=== PATIENT | male | born 1975 | race Hispanic/Latino ===

== ENCOUNTER 2025-06-19 07:35 | Emergency (ER) | payer BC, OTHER ==
--- OUTSIDE RECORDS SUMMARY | 2025-06-19 07:39 | XMS REPORT | Continuity of Care Document ---
Author Name Unknown Address [address] [place] [address] [facility] [place] Address 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 Name Role Phone Pcp, Patient Does Not Have A Primary Care Physic pako BLANKA HAQ Attending Clinician Unavailable [id number] Attending Clinician Unavailable [id number] Attending Clinician Unavailable Dario Darden Attending Clinician Unavailabl e MALLORY NORTH Attending Clinician Unavailable MALLORY NORTH Attending Clinician Unavailable Lab, Ang - Db Attending Clinician Unavailable DARIO WHEELER Attending Clinician Unavailable Doctor Unassigned, [place] Attending Clinician U eduardoailable ZACH BRUCE Attending Clinician Unavailable Zach Bruce MD Attending Clinician Payers Payer Name Policy Type Policy Number Effective Date Expirati on Date Source BCBS 2 [id number] 2023 00:00:00 TML GBRP CLAIMS [id number] 2020 00:00:00 Problems Condition Name Condition Details Condition Category Status Onset Date Resolution Date Last Treatment Date Treating Clinician Comments Source Immunodefi ciency due to poorly controlled type 2 diabetes (multi HCC) Immunodefi ciency due to poorly controlled type 2 diabetes (multi HCC) Disease Active 04-08 00:00: 00 Mel Barreto - Mikea beck Well adult exam Well adult exam Disease Active 04-08 00:00: 00 Mel Jama Externa beck Type 2 diabetes mellitus with hyperglyce quinten, without long-term current use of insulin (multi HCC) Type 2 diabetes mellitus with hyperglyce quinten, without long-term current use of insulin (multi HCC) Disease Active 1- 00:00: 00 Mel Mckeona beck DM type 2 with diabetic mixed hyperlipid emia (multi HCC) DM type 2 with diabetic mixed hyperlipid emia (multi HCC) Disease Active 05-16 00:00: 00 Mel Mckeona beck Diabetes (multi HCC) Diabetes (multi HCC) Disease Active 05-16 00:00: 00 Mel Mckeona beck Overweight (BMI 25.0-29.9) Overweight (BMI 25.0-29.9) Disease Active 05-16 00:00: 00 Mel Mckeona beck No known active problems No known active problems Disease [facility] Allergies, Adverse Reactions, Alerts Allergy Name Allergy Type Status Severity Reaction(s) Onset Date Inactive Date Treating Clinician Comments Source NO KNOWN ALLERGIE S Drug Class Active [facility] Social History Social Habit Start Date Stop Date Quantity Comments Source Gender identity Suze Barreto - External Sexual orientation K cosme Barreto - External History of Occupation Mel Barreto - External Alcoholic beverage intake 2025-04-08 00:00:00 2025-04-08 00:00:00 Current drinker of alcohol (finding) Mel Barreto - External Alcohol intake 2023-12-25 00:00:00 2023-12-25 00:00:00 Current drinker of alcohol (finding) Mel Barreto - External History of Social function 2023-06-11 00:00:00 2023-06-11 00:00:00 Mel Barreto - External Education 2023-05-16 00:00:00 2023-05-16 00:00:00 13 Mel Barreto - External Alcohol Comment 2023-05-16 00:00:00 2023-05-16 00:00:00 rarely Mel Barreto - External Tobacco use and exposure 2023-05-15 00:00:00 2023-05-15 00:00:00 Smokeless tobacco non-user Mel Barreto - External Sex 2023-04-09 14:21:39 2023-04-09 14:21:39 Male (finding) Mel Barreto - External Exposure to SARS-CoV-2 (event) 2022-07-25 00:00:00 2022-08-04 12:40:00 Not sure [facility] Sex assigned at 1975 00:00:00 1975 00:00:00 Mel Barreto - External Smoking Status Start Date Stop Date Source Tobacco smoking consumption unknown [facility] Never smoked tobacco Mel Barreto - External Medications Ordered Medication Name Filled Medication Name Start Date Stop Date Current Medication? Ordering Clinician Indication Dosage Frequency Signature (SIG) Comments Components Source Tirzepatide (Mounjaro) 7.5 MG/0.5ML subcutaneou s Solution Auto-inject or 16 00:00: 00 Yes [id number] 9109 7.5mg Q1W Inject 7.5 mg into the skin once a week. Mel solares Metformin HCl 500 MG oral Tablet 02-25 00:00: 00 Yes [id number] 3 500mg Take 1 tablet (500 mg total) by mouth in the morning and 1 tablet (500 mg total) in the evening. Take with meals. Mel solares Tirzepatide (Mounjaro) 5 MG/0.5ML subcutaneou s Solution Auto-inject or 02-25 00:00: 00 04-08 00:00 :00 No [id number] 9109 1{pen} Q1W Inject 1 Pen into the skin once a week. Mel solares Tirzepatide 5 MG/0.5ML subcutaneou s Solution Auto-inject or 4-16 00:00: 00 Yes [id number] 9109 5mg Q1W Inject 5 mg into the skin once a week. Mel solares Glucose Blood in vitro Strip 15 00:00: 00 Yes [id number] 9109 1{each} QD 1 each by other route daily. Mel solares Tirzepatide 2.5 MG/0.5ML subcutaneou s Solution Auto-inject or 15 00:00: 00 01-07 00:00 :00 No [id number] 9109 2.5mg Q1W Inject 2.5 mg into the skin once a week. Mel solares Atorvastati n Calcium (Lipitor) 10 MG oral Tablet 2023-09 0-04 00:00: 00 Yes [id number] 3 10mg QD Take 1 tablet (10 mg total) by mouth nightly. Mel solares Metformin HCl 500 MG oral Tablet 2023-09 0-02 00:00: 00 Yes [id number] 3 500mg Take 1 tablet (500 mg total) by mouth in the morning and 1 tablet (500 mg total) in the evening. Take with meals. Mel solares OZEMPIC (1 mg/dose) 4 mg/3 mL SQ Solution Pen-Injecto r 8-21 00:00: 00 10-08 00:00 :00 No [id number] 3 1mg Q1W Inject 1 mg into the skin once a week. Mel solares Metformin HCl 500 MG oral Tablet 18 00:00: 00 Yes [id number] 3 500mg QD Take 1 tablet (500 mg total) by mouth daily (with breakfast) . eMl solares OZEMPIC (1 mg/dose) 4 mg/3 mL SQ Solution Pen-Injecto r 7-11 00:00: 00 05-14 00:00 :00 No [id number] 3 1mg Q1W Inject 1 mg into the skin once a week. Mel solares Metformin HCl 500 MG oral Tablet 7-03 00:00: 00 Yes [id number] 3 500mg QD Take 1 tablet (500 mg total) by mouth daily (with breakfast) . Mel Seybold - Externa l OZEMPIC (1 mg/dose) 4 mg/3 mL SQ Solution Pen-Injecto r 2024-0 7-03 00:00: 00 03-26 00:00 :00 No [id number] 3 1mg Q1W Inject 1 mg into the skin once a week. Mel Seybold - Externa l OZEMPIC (0.25 or 0.5 mg/dose) 2 mg/3 mL SQ Solution Pen-Injecto r 2024-0 6-05 00:00: 00 03-26 00:00 :00 No [id number] .5mg Q1W Inject 0.5 mg into the skin once a week. Mel Seybold - Externa l OZEMPIC (1 mg/dose) 4 mg/3 mL SQ Solution Pen-Injecto r 40 2-12 00:00: 00 12-24 00:00 :00 No 1mg Inject 1 mg into the skin once a week. Mel Seybold - Externa l OZEMPIC (0.25 or 0.5 mg/dose) 2 mg/3 mL SQ Solution Pen-Injecto r 0 1-22 00:00: 00 Yes [id number] .5mg Inject 0.5 mg into the skin once a week. Mel Seybold - Externa l OZEMPIC (1 mg/dose) 4 mg/3 mL SQ Solution Pen-Injecto r 0 9-27 00:00: 00 Yes [id number] 1mg Inject 1 mg into the skin once a week. Mel Barreto - Externa l Metformin HCl ER 500 MG oral TABLET SR 24 HR 0 9-27 00:00: 00 Yes [id number] 500mg Take 1 tablet (500 mg total) by mouth in the morning and 1 tablet (500 mg total) in the evening. Take with meals. Mel Seybold - Externa l OZEMPIC (0.25 or 0.5 mg/dose) 2 mg/3 mL SQ Solution Pen-Injecto r 20230 8-23 00:00: 00 Yes [id number] .5mg Inject 0.5 mg into the skin once a week. Mel Booneold - Externa l Metformin HCl ER 500 MG oral TABLET SR 24 HR 0 8-23 00:00: 00 Yes [id number] 500mg Take 1 tablet (500 mg total) by mouth daily. Mel solares OZEMPIC (0.25 or 0.5 mg/dose) 2 mg/3 mL SQ Solution Pen-Injecto r 04-19 00:00: 00 05-16 00:00 :00 No INJECT 0.5MG SUBCUTANEO USLY ONCE A WEEK Mel solares blood sugar diagnostic (ACCU-CHEK GUIDE TEST STRIPS) strip 2021-09 00:00: 00 Yes [id number] Use daily. Dx E11.65 [facility] semaglutide (OZEMPIC) 0.25 mg or 0.5 mg(2 mg/1.5 mL) PnIj 2021-09 00:00: 00 Yes [id number] .5mg inject 0.5 mg under the skin weekly. [facility] Metformin HCl ER 500 MG oral TABLET SR 24 HR 2021-09 00:00: 00 05-16 00:00 :00 No 500mg Take 1 tablet (500 mg total) by mouth daily. Mel solares metformin ER 500 mg 24 hr tablet 02-03 00:00: 00 08-04 00:00 :00 No [id number] 500mg Take 1 tablet by mouth daily. [facility] semaglutide (OZEMPIC) 0.25 mg or 0.5 mg(2 mg/1.5 mL) PnIj 02-03 00:00: 00 08-04 00:00 :00 No [id number] .5mg inject 0.5 mg under the skin weekly. [facility] blood sugar diagnostic (ACCU-CHEK GUIDE TEST STRIPS) strip 10-07 00:00: 00 08-16 00:00 :00 No [id number] Use daily. Dx E11.65 [facility] metformin ER 500 mg 24 hr tablet - 00:00: 00 02-03 00:00 :00 No [id number] 1000mg Take 2 tablets by mouth daily. [facility] semaglutide (OZEMPIC) 0.25 mg or 0.5 mg(2 mg/1.5 mL) PnIj 2021-0 14 00:00: 00 02-03 00:00 :00 No [id number] .5mg inject 0.5 mg under the skin weekly. [facility] Vital Signs Vital Name Observation Time Observation Value Comments S ource Systolic blood pressure 2025-04-08 20:49:00 118 mm[Hg] Mel Seybo ld - External Diastolic blood pressure 2025-04-08 20:49:00 70 mm[Hg] Mel Seybo ld - External Heart rate 2025-04-08 20:49:00 79 /min Kelse y Seybold - External Body temperature 2025-04-08 20:49:00 36.61 Brooke Mel Seybold - External Respiratory rate 2025-04-08 20:49:00 18 /min Mel Seybold - External Body height 2025-04-08 20:49:00 180.3 cm Suze ey Seybold - External Body weight 2025-04-08 20:49:00 85.548 kg Suze ey Seybold - External BMI 2025-04-08 20:49:00 26.30 kg/m2 Suze ey Seybold - External Oxygen saturation in Arterial blood by Pulse oximetry 2025-04-08 20:49:00 96 /min Mel Seybo ld - External Systolic blood pressure 2025-01-07 21:13:00 116 mm[Hg] Mel Seybo ld - External Diastolic blood pressure 2025-01-07 21:13:00 72 mm[Hg] Mel Seybo ld - External Heart rate 2025-01-07 21:13:00 87 /min Kelse y Seybold - External Body temperature 2025-01-07 21:13:00 36.06 Brooke Mel Seybold - External Respiratory rate 2025-01-07 21:13:00 16 /min Mel Seybold - External Body height 2025-01-07 21:13:00 180.3 cm Suze ey Seybold - External Body weight 2025-01-07 21:13:00 86.183 kg Suze ey Seybold - External BMI 2025-01-07 21:13:00 26.50 kg/m2 Suze ey Seybold - External Oxygen saturation in Arterial blood by Pulse oximetry 2025-01-07 21:13:00 97 /min Mel Seybo ld - External Systolic blood pressure 2024-10-08 22:10:00 124 mm[Hg] Mel Seybo ld - External Diastolic blood pressure 2024-10-08 22:10:00 68 mm[Hg] Mel Seybo ld - External Heart rate 2024-10-08 22:10:00 74 /min Kelse y Seybold - External Body temperature 2024-10-08 22:10:00 36.33 Brooke Mel Seybold - External Respiratory rate 2024-10-08 22:10:00 16 /min Mel Seybold - External Body height 2024-10-08 22:10:00 180.3 cm Suze ey Seybold - External Body weight 2024-10-08 22:10:00 86.637 kg Suze ey Seybold - External BMI 2024-10-08 22:10:00 26.64 kg/m2 Suze ey Seybold - External Oxygen saturation in Arterial blood by Pulse oximetry 2024-10-08 22:10:00 96 /min Mel Seybo ld - External Systolic blood pressure 2024-05-14 20:53:00 122 mm[Hg] Mel Seybo ld - External Diastolic blood pressure 2024-05-14 20:53:00 73 mm[Hg] Mel Seybo ld - External Heart rate 2024-05-14 20:53:00 75 /min Kelse y Seybold - External Respiratory rate 2024-05-14 20:53:00 16 /min Mel Seybold - External Body height 2024-05-14 20:53:00 180.3 cm Suze ey Seybold - External Body weight 2024-05-14 20:53:00 86.183 kg Suze ey Seybold - External BMI 2024-05-14 20:53:00 26.50 kg/m2 Suze ey Seybold - External Oxygen saturation in Arterial blood by Pulse oximetry 2024-05-14 20:53:00 100 /min Mel Seybo ld - External Oxygen saturation in Arterial blood by Pulse oximetry 2024-03-26 20:50:00 100 /min Mel Booneo ld - External Systolic blood pressure 2024-03-26 20:50:00 120 mm[Hg] Mel Seybo ld - External Diastolic blood pressure 2024-03-26 20:50:00 69 mm[Hg] Mel Seybo ld - External Heart rate 2024-03-26 20:50:00 94 /min Kelse y Seybold - External Body temperature 2024-03-26 20:50:00 36.56 Brooke Mel Seybold - External Respiratory rate 2024-03-26 20:50:00 16 /min Mel Seybold - External Body height 2024-03-26 20:50:00 180.3 cm Suze ey Seybold - External Body weight 2024-03-26 20:50:00 88.451 kg Suze ey Seybold - External BMI 2024-03-26 20:50:00 27.20 kg/m2 Suze ey Seybold - External Systolic blood pressure 2023-12-25 20:30:00 127 mm[Hg] Mel Seybo ld - External Diastolic blood pressure 2023-12-25 20:30:00 70 mm[Hg] Mel Alfordybo ld - External Body temperature 2023-12-25 20:30:00 36.61 Brooke Mel Seybold - External Respiratory rate 2023-12-25 20:30:00 15 /min Mel Seybold - External Body height 2023-12-25 20:30:00 180.3 cm Suze ey Seybold - External Body weight 2023-12-25 20:30:00 87.998 kg Suze ey Seybold - External BMI 2023-12-25 20:30:00 27.06 kg/m2 Suze ey Seybold - External Oxygen saturation in Arterial blood by Pulse oximetry 2023-12-25 20:30:00 100 /min Mel Seybo ld - External Systolic blood pressure 2023-09-26 21:21:00 121 mm[Hg] Mel Alfordybo ld - External Diastolic blood pressure 2023-09-26 21:21:00 72 mm[Hg] Mel Seybo ld - External Heart rate 2023-09-26 21:21:00 99 /min Kelse y Seybold - External Respiratory rate 2023-09-26 21:21:00 20 /min Mel Seybold - External Body height 2023-09-26 21:21:00 180.3 cm Suze ey Seybold - External Body weight 2023-09-26 21:21:00 87.998 kg Suze ey Seybold - External BMI 2023-09-26 21:21:00 27.06 kg/m2 Suze ey Seybold - External Oxygen saturation in Arterial blood by Pulse oximetry 2023-09-26 21:21:00 99 /min Mel Seybo ld - External Systolic blood pressure 2023-06-20 20:31:00 115 mm[Hg] Mel Seybo ld - External Diastolic blood pressure 2023-06-20 20:31:00 79 mm[Hg] Mel Seybo ld - External Heart rate 2023-06-20 20:31:00 88 /min Kelse y Seybold - External Body temperature 2023-06-20 20:31:00 37.06 Brooke Mel Seybold - External Respiratory rate 2023-06-20 20:31:00 15 /min Mel Seybold - External Body height 2023-06-20 20:31:00 180.3 cm Suze ey Seybold - External Body weight 2023-06-20 20:31:00 88.451 kg Suze ey Seybold - External BMI 2023-06-20 20:31:00 27.20 kg/m2 Suze ey Seybold - External Oxygen saturation in Arterial blood by Pulse oximetry 2023-06-20 20:31:00 99 /min Mel Seybo ld - External Systolic blood pressure 2023-05-16 20:22:00 110 mm[Hg] Mel Seybo ld - External Diastolic blood pressure 2023-05-16 20:22:00 76 mm[Hg] Mel Seybo ld - External Heart rate 2023-05-16 20:22:00 87 /min Kelse y Seybold - External Body temperature 2023-05-16 20:22:00 36.61 Brooke Mel Seybold - External Respiratory rate 2023-05-16 20:22:00 15 /min Mel Seybold - External Body height 2023-05-16 20:22:00 180.3 cm Suze ey Seybold - External Body weight 2023-05-16 20:22:00 88.451 kg Suze ey Seybold - External BMI 2023-05-16 20:22:00 27.20 kg/m2 Suze ey Seybold - External Oxygen saturation in Arterial blood by Pulse oximetry 2023-05-16 20:22:00 99 /min Mel Selgorycassandra ld - External Systolic blood pressure 2022-08-04 18:57:00 153 mm[Hg] [facility] Diastolic blood pressure 2022-08-04 18:57:00 99 mm[Hg] [facility] Heart rate 2022-08-04 18:48:00 76 /min [facility] Body weight 2022-08-04 18:48:00 87.136 kg [facility] BMI 2022-08-04 18:48:00 26.79 kg/m2 [facility] Oxygen saturation in Arterial blood by Pulse oximetry 2022-08-04 18:48:00 97 /min [facility] Systolic blood pressure 2022-02-03 18:00:00 115 mm[Hg] [facility] Diastolic blood pressure 2022-02-03 18:00:00 80 mm[Hg] [facility] Heart rate 2022-02-03 17:48:00 104 /min [facility] Body weight 2022-02-03 17:48:00 87.59 kg [facility] BMI 2022-02-03 17:48:00 26.93 kg/m2 [facility] Oxygen saturation in Arterial blood by Pulse oximetry 2022-02-03 17:48:00 97 /min [facility] Procedures Procedure Date / Time Performed Performing Clinicia n Source POCT HEMOGLOBIN A1C TEST 2022-08-04 18:58:00 Dario Wheeler [facility] ASSIGNMENT OF BENEFITS 2022-08-04 18:44:27 Docto r Unassigned, [place] [facility] POCT HEMOGLOBIN A1C TEST 2022-02-03 18:01:00 Dario Wheeler [facility] Encounters Start Date/Time End Date/Time Encounter Type Admission Type Attending [facility] Care Department Encounter ID Source 2025-07-08 16:15:00 2025-07-08 16:15:00 Outpatient PREZABLANKA Graff MEL [id number] [facility] 2025-05-19 00:00:00 2025-05-19 00:00:00 Outpatient PREZASBLANKA MEL RODRIGUEZ [id number] Mel [facility] 2025-04-23 00:00:00 2025-04-23 00:00:00 Outpatient PREZASBLANKA MEL RODRIGUEZ [id number] [facility] 2025-04-13 00:00:00 2025-04-13 00:00:00 Outpatient PREZAS, BLANKA MEL RODRIGUEZ [id number] Mel [facility] 2025-04-09 00:00:00 2025-04-09 00:00:00 Outpatient PREZASJO ANNBLANKAKEENAN RODRIGUEZ [id number] Mel [facility] 2025-04-08 16:00:00 2025-04-08 16:00:00 Outpatient PREZAS, BLANKA MEL RODRIGUEZ [id number] Mel [facility] 2025-04-08 15:45:00 2025-04-08 15:45:00 Outpatient PREZAS, BLANKA MEL RODRIGUEZ [id number] Mel [facility] 2025-04-06 07:55:00 2025-04-06 07:55:00 Outpatient [id number] MEL RODRIGUEZ [id number] Mel [facility] 2025-02-24 00:00:00 2025-02-24 00:00:00 Outpatient PREZASJO ANNBLANKAKEENAN RODRIGUEZ [id number] Mel [facility] 2025-02-24 00:00:00 2025-02-24 00:00:00 Outpatient PREZAS BLANKA RODRIGUEZ [id number] Mel [facility] 2025-01-07 16:15:00 2025-01-07 16:15:00 Outpatient PREZAS BLANKA RODRIGUEZ [id number] [facility] 2025-01-05 08:10:00 2025-01-05 08:10:00 Outpatient [id number] MEL RODRIGUEZ [id number] Mel [facility] 2025-01-05 00:00:00 2025-01-05 00:00:00 Outpatient PREZAS, BLANKA RODRIGUEZ [id number] Mel [facility] 2025-01-05 00:00:00 2025-01-05 00:00:00 Outpatient PREZAS, BLANKA RODRIGUEZ [id number] Mel [facility] 2024-10-08 16:15:00 2024-10-08 16:15:00 Outpatient PREZAS, BLANKA RODRIGUEZ [id number] Mel [facility] 2024-10-06 08:20:00 2024-10-06 08:20:00 Outpatient LAB90 MEL RODRIGUEZ [id number] Mel [facility] 2024-08-20 16:15:00 2024-08-20 16:15:00 Outpatient PREZAS, BLANKA RODRIGUEZ [id number] [facility] 2024-08-13 07:50:00 2024-08-13 07:50:00 Outpatient LAB90 MEL RODRIGUEZ [id number] [facility] 2024-06-27 00:00:00 2024-06-27 00:00:00 Outpatient PREZAS, BLANKA RODRIGUEZ [id number] [facility] 2024-06-25 00:00:00 2024-06-25 00:00:00 Outpatient PREZAS, BLANKA RODRIGUEZ [id number] [facility] 2024-06-23 08:05:00 2024-06-23 08:05:00 Outpatient LAB90 MEL RODRIGUEZ [id number] [facility] 2024-06-04 08:06:28 2024-06-04 08:06:28 Outpatient [facility] [id number] Maximilian Abraham 2024-05-14 16:15:00 2024-05-14 16:15:00 Outpatient PREZAS, BLANKA RDORIGUEZ [id number] [facility] 2024-04-02 00:00:00 2024-04-02 00:00:00 Outpatient PREZAS, BLANKA RODRIGUEZ MEL [id number] [facility] 2024-03-28 00:00:00 2024-03-28 00:00:00 Outpatient PREZAS, BLANKA RODRIGUEZ [id number] [facility] 2024-03-26 16:00:00 2024-03-26 16:00:00 Outpatient PREZAS, BLANKA RODRIGUEZ [id number] [facility] 2024-03-25 00:00:00 2024-03-25 00:00:00 Outpatient PREZAS, BLANKA RODRIGUEZ [id number] [facility] 2024-03-24 07:50:00 2024-03-24 07:50:00 Outpatient LAB90 MEL RODRIGUEZ [id number] [facility] 2024-02-27 00:00:00 2024-02-27 00:00:00 Outpatient PREZAS, BLANKA RODRIGUEZ [id number] [facility] 2024-01-29 00:00:00 2024-01-29 00:00:00 Outpatient PREZAS, BLANKA RODRIGUEZ MEL [id number] [facility] 2023-12-25 15:30:00 2023-12-25 15:30:00 Outpatient PREZAS, BLANKA CORONASEY [id number] [facility] 2023-12-18 08:00:00 2023-12-18 08:00:00 Outpatient LAB90 MEL RODRIGUEZ [id number] [facility] 2023-10-17 00:00:00 2023-10-17 00:00:00 Outpatient PREZAS, BLANKA RODRIGUEZ MEL [id number] [facility] 2023-10-15 00:00:00 2023-10-15 00:00:00 Outpatient PREZAS, BLANKA RODRIGUEZ MEL [id number] [facility] 2023-10-12 00:00:00 2023-10-12 00:00:00 Outpatient PREZAS, BLANKA RODRIGUEZ MEL [id number] [facility] 2023-10-07 00:00:00 2023-10-07 00:00:00 Outpatient PREZAS, BLANKA RODRIGUEZ MEL [id number] [facility] 2023-09-26 15:30:00 2023-09-26 15:30:00 Outpatient PREZASBLANKA [id number] Mel Barreto 2023-09-18 00:00:00 2023-09-18 00:00:00 Outpatient PREZABLANKA Graff [id number] Mel Barreto 2023-09-12 08:05:00 2023-09-12 08:05:00 Outpatient LAB90 MEL RODRIGUEZ [id number] Mel Barreto 2023-06-20 15:30:00 2023-06-20 15:30:00 Outpatient PREZABLANKA Graff [id number] Mel Barreto 2023-05-18 00:00:00 2023-05-18 00:00:00 Outpatient PREZABLANKA Graff [id number] Mel Barreto 2023-05-17 08:00:00 2023-05-17 08:00:00 Outpatient LAB90 MEL RODRIGUEZ [id number] Mel [facility] 2023-05-16 15:30:00 2023-05-16 15:30:00 Outpatient PREZABLANKA Graff [id number] [facility] 2023-04-26 00:00:00 2023-04-26 00:00:00 [facility] 1..840.114 350.1.13.10 4.2.7.2.686 [id number] [facility] 2023-02-05 13:30:00 2023-02-05 13:30:00 Outpatient R M[facility]ORY [facility] [id number] [facility] 2022-08-15 00:00:00 2022-08-15 00:00:00 Telephone [facility] 1..840.114 350.1.13.10 [id number] [id number] [facility] 2022-08-04 13:45:00 2022-08-04 14:00:00 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 Lab, Ang - Db Liam [facility] EVANGELIST?[facility] 1.114 350.1.13.10 [id number] [id number] [facility] 2022-08-04 13:00:00 2022-08-04 13:24:27 Office Visit Liam [facility] EVANGELIST?[facility] 1.114 350.1.13.10 [id number] [id number] [facility] 2022-08-04 13:00:00 2022-08-04 13:24:27 Outpatient R LIAM [facility] [id number] [facility] 2022-08-04 00:00:00 2022-08-04 00:00:00 Orders Only Doctor Unassigned, [place] [facility] 1.114 350.1.13.10 4.2.7.2.686 [id number] [facility] 2022-08-04 00:00:00 2022-08-04 00:00:00 Letter (Out) Liam [facility] EVANGELIST?[facility] 1.114 350.1.13.10 4.2.7.2.686 [id number] [facility] 2022-08-04 00:00:00 2022-08-04 00:00:00 Telephone Liam [facility] 1.114 350.1.13.10 [id number] [id number] [facility] 2022-03-01 00:00:00 2022-03-01 00:00:00 Refill Liam [facility] EVANGELIST?[facility] 1.114 350.1.13.10 [id number] [id number] [facility] 2022-02-03 13:00:00 2022-02-03 13:23:45 Outpatient R DARIO WHEELER [facility] [id number] [facility] 2022-02-03 13:00:00 2022-02-03 13:23:45 [facility] 1..840.114 [id number] [facility] 2022-02-03 13:00:00 2022-02-03 13:23:45 [facility] [id number] [facility] 2022-02-03 13:00:00 2022-02-03 13:00:00 Outpatient R DARIO WHEELER [facility] [id number] [facility] 2021-10-07 13:00:00 2021-10-07 13:33:27 Out[facility] [id number] [facility] 2021-10-07 13:00:00 2021-10-07 13:33:27 [facility] 1..840.114 350.1.13.10 4.2.7.2.686 [id number] 220 [id number] [facility] 2021-10-07 00:00:00 2021-10-07 00:00:00 Letter (Out) [facility] 1..840.114 350.1.13.10 4.2.7.2.686 [id number] [facility] 2021-07-25 15:30:00 2021-07-25 15:30:00 Outpatient R ZACH BRUCE [facility] [id number] [facility] 2021-07-15 00:00:00 2021-07-15 00:00:00 Telephone Liam Pending sale to [facility] 1.2.840.114 350.1.13.10 4.2.7.2.686 [id number] 220 [id number] [facility] 2021-07-13 00:00:00 2021-07-13 00:00:00 Orders Only Doctor Unassigned, [place] [facility] 1.2.840.114 350.1.13.10 4.2.7.2.686 [id number] [facility] 2021-07-13 00:00:00 2021-07-13 00:00:00 [facility] 1..840.114 350.1.13.10 4.2.7.2.686 [id number] 220 [id number] [facility] 2021-07-11 00:00:00 2021-07-11 00:00:00 Telephone [facility] 1..840.114 350.1.13.10 4.2.7.2.686 [id number] 220 [id number] [facility] 2021-07-08 13:00:00 2021-07-08 14:06:52 Outpatient R KASSIDY WHEELERNNA [facility] [id number] [facility] 2021-07-08 12:17:59 2021-07-08 14:06:52 Office Visit [facility] 1.2.840.114 350.1.13.10 4.2.7.2.686 [id number] [facility] 2021-07-08 13:00:00 2021-07-08 13:00:00 Outpatient R [facility] [id number] [facility] 2021-07-08 00:00:00 2021-07-08 00:00:00 Letter (Out) Liam [facility] Evangelist?[facility] 1.2.840.114 350.1.13.10 4.2.7.2.686 [id number] [facility] 2021-07-08 00:00:00 2021-07-08 00:00:00 Letter (Out) Liam [facility] Evangelist?[facility] 1..840.114 350.1.13.10 4.2.7.2.686 [id number] [facility] 2021-04-18 14:20:29 2021-04-18 15:40:06 Office Visit Bretjoe [facility] 1..840.114 350.1.13.10 4.2.7.2.686 [id number] 220 [id number] [facility] 2021-04-18 14:30:00 2021-04-18 14:30:00 [facility] [id number] [facility] 2021-04-18 00:00:00 2021-04-18 00:00:00 Orders Only Doctor Unassigned, [place] [facility] 1.840.114 350.1.13.10 4.2.7.2.686 [id number] [facility] 2021-04-18 00:00:00 2021-04-18 00:00:00 Letter (Out) Nga [facility] 1.2.840.114 350.1.13.10 4.2.7.2.686 [id number] [facility] Results Test Description Test Time Test Comments Results Result Co mments Source [facility] HEMOGLOBIN A1C [id number] 19:00:00* Test Item Value Reference Range Interpretation Comme nts POCT HBA1C (test code = 4548-4) 8.1 % 4-6 A Lab Interpretation (test cod e = 35476-5) Abnormal [facility] HEMOGLOBIN A1C [id number] 18:05:00* Test Item Value Reference Range Interpretation Comme nts POCT HBA1C (test code = 4548-4) 7.2 % 4-6 A Lab Interpretation (test cod e = 19503-9) Abnormal [facility] Notes Date/Time Note Provider Source 2025-04-08 15:50:51 Chief Complaint Patient presents with Physical Allegra Reagan MA [facility] 2025-01-07 16:15:10 Chief Complaint Patient presents with Diabetes 3 month follow up Allegra Reagan MA [facility] 2024-10-08 16:14:17 Chief Complaint Patient presents with Follow-up 3 month follow up for DM Brittany Bell LVN [facility] 2023-04-28 07:09:24 Formatting of this n ote might be different from the original. NOV: none DAYA: 08/04/22 Transition of care patient [facility]
[2025-06-19] MEDS ORDERED: TDAP (DIPHTH,PERTUSS(ACELL),TET VAC) 0.5 ML VIAL IMVAC ONE (08:03)
[2025-06-19] MEDS ORDERED: ONDANSETRON 4 MG/2 ML VIAL ONE (08:03)
[2025-06-19] MEDS ORDERED: MORPHINE 4 MG/ML SYR ONE (08:03)
[2025-06-19] MEDS ORDERED: NA CHLORIDE 0.9% 1,000 ML ONE (08:03)
[2025-06-19 08:17] LABS: Absolute Lymphocytes (CBC) 1.1 K/uL (0.7-4.9); Hematocrit 42.2 % (39.6-49.0); Hemoglobin 14.6 g/dL (13.6-17.9); MCH 30.6 pg (27.0-35.0); MCHC 34.6 g/dL (32.0-36.0); MCV 88.5 fL (80-100); MPV 9.1 fL (7.6-11.3); Nucleated RBC Absolute Count 0.0 (0-0); Nucleated Red Blood Cells % 0.0 % (0-0); RBC Red Blood Cell Count 4.77 M/uL (4.33-5.43); White Blood Count 6.20 thou/uL (4.3-10.9)
[2025-06-19 08:27] LABS: PT Prothrombin Time 11.5 SECONDS (10-13.0); Protime INR 1.02
--- NOTE | 2025-06-19 08:34 | RAD REPORT ---
EXAMINATION: ONE VIEW CHEST XR CLINICAL INDICATION: COUGH TECHNIQUE: Frontal chest projection is submitted. Examination is limited by patient positioning and t echnique. COMPARISON: No prior exam. FINDINGS: The lungs are well inflated and clear. The heart is upper limit of normal in size. No displaced fract ures identified. IMPRESSION: No acute intrathoracic abnormalities.
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
[2025-06-19 08:37] LABS: ALT/SGPT 28 U/L (16-61); AST/SGOT 16 U/L (15-37); Albumin 3.3 g/dL (3.4-5.0); Albumin/Globulin Ratio 0.9 (1.1-1.8); Alkaline Phosphatase 45 U/L (45-117); Anion Gap 13.0 mEq/L (5.0-15.0); BUN Blood Urea Nitrogen 19 mg/dL (7-18); Globulin 3.5 g/dL (2.3-3.5); Glucose Level 328 mg/dL (74-106); Lipase 43 U/L (13-75); Magnesium 1.9 mg/dL (1.6-2.4); NT PRO-BNP 20 pg/mL (<125); Potassium 4.0 mEq/L (3.5-5.1); Troponin High Sensitivity 4.2 pg/mL (<58.9)
[2025-06-19 08:38] LABS: Bilirubin Indirect, Calculated 0.4 mg/dL (0.2-0.8)
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
[2025-06-19] MEDS ORDERED: NA CHLORIDE 0.9% 50 ML ONE (08:53)
[2025-06-19] MEDS ORDERED: CEFAZOLIN SODIUM 1 GM/VIAL ONE (08:53)
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
[2025-06-19] MEDS ORDERED: FLUORESCEIN SODIUM 1 MG/WRAP ONE (09:33)
[2025-06-19] MEDS ORDERED: TETRACAINE HCL 0.5% 4ML OPTH ONE (09:33)
[2025-06-19 09:52] LABS: Urine Microscopic Reflex YN NO UMIC
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
[2025-06-19 11:30] VITALS: TEMP 97.5
[2025-06-19 11:31] VITALS: O2SAT 99
[2025-06-19 11:32] VITALS: BP 134/82
== END 2025-06-19 11:25 | disposition home or self-care (01) ==
LOC: ER 07:35
DX: S61.422A Laceration with foreign body of left hand, initial encounter (principal); S61.411A Laceration without foreign body of right hand, initial encounter; T15.02XA Foreign body in cornea, left eye, initial encounter; S00.81XA Abrasion of other part of head, initial encounter; E11.65 Type 2 diabetes mellitus with hyperglycemia; V49.49XA Driver injured in collision with other motor vehicles in traffic accident, initial encounter; Z23 Encounter for immunization
CPT/HCPCS: 93005; 85025; 80048; 36415; 83735; 85610; 80076; 81003; 84484; 83690; 83880; 70450; 72125; 71260; 70486; 76377; 74177; 71045; 73130 ×2; 90715; 96375; 96372; 96374; 99284; Q9967; J2405; J7030; J0690